=== PATIENT | female | born 1950 | race Caucasian/White ===

== ENCOUNTER → 2017-02-09 | Outpatient (CLI) | payer OTHER ==
--- NOTE | 2017-02-11 13:04 | MM ---
Reason for exam: screening (asymptomatic). Last mammogram was performed 1 year ago. History: Patient is postmenopausal. Family history of premenopausal breast cancer in sister at age 51. Benign stereotactic core biopsy of the left breast, June 02, 2000. Core biopsy of the left breast. Took estrogen for 12 years beginning at age 50. Physical Findings: A clinical breast exam by your physician is recommended on an annual basis and results should be correlated with mammographic findings. MG Screening Mammo w CAD Bilateral CC and MLO view(s) were taken. Prior study comparison: February 09, 2016, bilateral MG screening mammo w CAD. February 05, 2015, bilateral MG screening mammo w CAD. The breast tissue is heterogeneously dense. This may lower the sensitivity of mammography. Previous mammotome biopsy within the left breast. Focal asymmetry upper outer right breast is stable. No significant changes when compared with prior studies. ASSESSMENT: Benign, BI-RAD 2 RECOMMENDATION: Routine screening mammogram of both breasts in 1 year.
== END | disposition home or self-care (01) ==
LOC: RADMAMWWP 07:47
PROVIDERS: ATTEND Obstetrics & Gynecology
DX: Z12.31 Encounter for screening mammogram for malignant neoplasm of breast (principal)

== ENCOUNTER → 2018-02-13 | Outpatient (CLI) | payer MEDICARE ==
--- NOTE | 2018-02-14 11:46 | MM ---
Reason for exam: screening (asymptomatic). Last mammogram was performed 1 year ago. History: Patient is postmenopausal. Family history of premenopausal breast cancer in sister at age 51. Benign stereotactic core biopsy of the left breast, June 02, 2000. Core biopsy of the left breast. Took estrogen for 12 years beginning at age 50. Physical Findings: A clinical breast exam by your physician is recommended on an annual basis and results should be correlated with mammographic findings. MG 3D Screening Mammo W/Cad Bilateral CC and MLO view(s) were taken. Prior study comparison: February 09, 2017, bilateral MG screening mammo w CAD. February 09, 2016, bilateral MG screening mammo w CAD. The breast tissue is heterogeneously dense. This may lower the sensitivity of mammography. Previous mammotome biopsy in the left breast. There is chronic nodularity in the left breast laterally. No significant changes when compared with prior studies. ASSESSMENT: Negative, BI-RAD 1 RECOMMENDATION: Routine screening mammogram of both breasts in 1 year.
== END | disposition home or self-care (01) ==
LOC: RADMAMWWP 07:32
PROVIDERS: ATTEND Obstetrics & Gynecology
DX: Z12.31 Encounter for screening mammogram for malignant neoplasm of breast (principal)
CPT/HCPCS: 77063; 77067

== ENCOUNTER 2018-02-14 07:27 | Day surgery (SDC) | payer MEDICARE, OTHER ==
[2018-02-09 08:28] VITALS: BMI 24.5
[~2018-02-14 07:27] MED LIST: LIDOCAINE 1% 20 ML VIAL (10MG/ML) FOR IV START INTRADERMA PRN
[2018-02-14 07:41] VITALS: RESP 16; TEMP 97.9
[2018-02-14] MEDS: LACTATED RINGERS 1,000 ML IV SCH ×2 (07:54→09:26)
[2018-02-14] MEDS ORDERED: LIDOCAINE 1% INJ 10MG/ML (20 ML MDV) ONE (09:29)
[2018-02-14] MEDS ORDERED: PROPOFOL 10 MG/ML 20 ML VIAL IV ONE (09:29)
--- NOTE | 2018-02-14 10:07 | P.PCN ---
Date of Procedure: 02/14/18 Procedure(s) Performed: Procedure: Total colonoscopy. Preoperative diagnosis: Screening for neoplasia, patient has history of polyps. Postoperative diagnosis: Diverticulosis with no evidence of acute diverticulitis , strictures, polyps or cancer. Preparation: HalfLytely prep. Sedation: Was provided by anesthesia. Brief clinical history: The patient is a 67-year-old female who is scheduled for this evaluation for screening for neoplasia age being her risk factor. In addition, she has history of polyps and her last colonoscopy was around 5 years ago. The patient has no abdominal complaints, bleeding or anemia. Procedure: With the patient on her left lateral decubitus position and after informed consent and adequate sedation, the perianal area was inspected and it did not show any fissures or fistulas. There were no masses felt on digital rectal examination. The Olympus CFQ 160L video colonoscope was then inserted in the rectum in the usual fashion and advanced to the cecum. There were several diverticular orifices seen scattered, both on the left and right side, with no evidence of acute diverticulitis or strictures. The mucosa appeared healthy. No polyps or tumors were seen. I retroflexed the endoscope in the rectum before the endoscope was withdrawn. The patient tolerated the procedure well. Plan: The patient was reassured. Discussed dietary measures. She will follow- up with you as planned and I recommended repeat exam in 5 years.
[2018-02-14 10:40] VITALS: BP 148/81; PULSE 60
== END 2018-02-14 10:48 | disposition home or self-care (01) ==
LOC: ORWHC2ENDO 07:27
DX: Z12.11 Encounter for screening for malignant neoplasm of colon (principal); K57.30 Diverticulosis of large intestine without perforation or abscess without bleeding; Z86.010 Personal history of colon polyps; M19.90 Unspecified osteoarthritis, unspecified site; Z79.82 Long term (current) use of aspirin; Z79.899 Other long term (current) drug therapy
CPT/HCPCS: J2001; J2704; G0105; 45378

== ENCOUNTER → 2019-02-20 | Outpatient (CLI) | payer MEDICARE ==
--- NOTE | 2019-02-20 09:04 | BD ---
EXAMINATION TYPE: Axial Bone Density DATE OF EXAM: 02/20/2019 COMPARISON: 07.19.2011 CLINICAL HISTORY: 68 YR OLD FEMALE...ICD-10 CODE: Z78.0 POST MENOPAUSAL W/O HRT Height: 62.8 Weight: 150 FRAX RISK QUESTIONS: NOTHING TO NOTE HERE RISK FACTORS HISTORY OF: Active: YES Diet low in dairy products/other sources of calcium: NO MILK Postmenopausal woman: YES AT AGE 50 Take estrogen and/or progesterone medications: HRT FROM 48-62 YRS OLD MEDICATIONS: Prednisone or other steroids: THIS WEEK FOR EAR INFECTIONS , BUT NOT ON REGULAR BASIS Additional Medications: CALCIUM SUPPLEMENT Additional History: NOTHING TO NOTE EXAM MEASUREMENTS: Bone mineral densitometry was performed using the Super Vitamin D System. Bone mineral density as measured about the Lumbar spine is: ----- L1-L4(G/cm2): 1.347 T Score Values are as follows: ----- L1: 1.1 ----- L2: 0.9 ----- L3: 1.7 ----- L4: 1.6 ----- L1-L4: 1.4 Bone mineral density has: Increased 5.6% since study of: 07.19.2011 Bone mineral density about the R hip (g/cm2): 1.020 Bone mineral density about the L hip (g/cm2): 0.980 T Score values are as follows: -----R Neck: 0.5 -----L Neck: 0.2 -----R Total: 0.1 -----L Total: -0.2 Bone mineral density has: Decreased -0.3% since study of: 07.19.2011 FRAX%s: THERE IS A 6.6% CHANCE FOR A MAJOR OSTEOPOROTIC FX AND A 0.2% FOR HIP....PROBABILITY FOR FX IN 10 YRS TIME IMPRESSION: Normal (Values between +1 and -1 indicate normal bone mass). Consider repeating this study in 5 year s or sooner if there is some new clinical indication. NOTE: T-SCORE=SD OF THE YOUNG ADULT MEAN.
--- NOTE | 2019-02-21 11:17 | MM ---
Reason for exam: screening (asymptomatic). Last mammogram was performed 1 year ago. History: Patient is postmenopausal. Family history of premenopausal breast cancer in sister at age 51. Benign stereotactic core biopsy of the left breast, June 02, 2000. Core biopsy of the left breast. Took estrogen for 12 years beginning at age 50. Physical Findings: A clinical breast exam by your physician is recommended on an annual basis and results should be correlated with mammographic findings. MG 3D Screening Mammo W/Cad Bilateral CC and MLO view(s) were taken. Prior study comparison: February 13, 2018, bilateral MG 3d screening mammo w/cad. February 09, 2017, bilateral MG screening mammo w CAD. The breast tissue is heterogeneously dense. This may lower the sensitivity of mammography. No suspicious abnormality. Left biopsy marker noted. No significant changes when compared with prior studies. ASSESSMENT: Negative, BI-RAD 1 RECOMMENDATION: Routine screening mammogram of both breasts in 1 year.
== END | disposition home or self-care (01) ==
LOC: RADMAMWWP 07:12
PROVIDERS: ATTEND Obstetrics & Gynecology
DX: Z12.31 Encounter for screening mammogram for malignant neoplasm of breast (principal); Z13.820 Encounter for screening for osteoporosis; Z78.0 Asymptomatic menopausal state
CPT/HCPCS: 77063; 77067; 77080

== ENCOUNTER → 2020-04-04 | Outpatient (CLI) | payer MEDICARE ==
--- NOTE | 2020-04-08 08:23 | MM ---
Reason for exam: screening (asymptomatic). Last mammogram was performed 1 year and 1 month ago. History: Patient is postmenopausal. Family history of premenopausal breast cancer in sister at age 51. Benign stereotactic core biopsy of the left breast, June 02, 2000. Core biopsy of the left breast. Took estrogen for 12 years beginning at age 50. Physical Findings: A clinical breast exam by your physician is recommended on an annual basis and results should be correlated with mammographic findings. MG 3D Screening Mammo W/Cad Bilateral CC and MLO view(s) were taken. Prior study comparison: February 20, 2019, bilateral MG 3d screening mammo w/cad. February 13, 2018, bilateral MG 3d screening mammo w/cad. The breast tissue is heterogeneously dense. This may lower the sensitivity of mammography. Previous mammotome biopsy in the left breast. There is no discrete abnormality. No significant changes when compared with prior studies. ASSESSMENT: Benign, BI-RAD 2 RECOMMENDATION: Routine screening mammogram of both breasts in 1 year.
== END | disposition home or self-care (01) ==
LOC: RADMAMWWP 08:04
PROVIDERS: ATTEND Obstetrics & Gynecology
DX: Z12.31 Encounter for screening mammogram for malignant neoplasm of breast (principal); Z80.3 Family history of malignant neoplasm of breast
CPT/HCPCS: 77063; 77067

== ENCOUNTER → 2020-08-05 | Outpatient (CLI) | payer MEDICARE ==
--- NOTE | 2020-08-05 10:33 | ECHOF ---
Referral Reason:Q23.1 Congenital insufficiency of aortic valve MEASUREMENTS -------- HEIGHT: 160.0 cm WEIGHT: 65.8 kg BP: RVIDd: 2.6 cm (< 3.3) IVSd: 1.1 cm (0.6 - 1.1) LVIDd: 4.6 cm (3.9 - 5.3) LVPWd: 1.2 cm (0.6 - 1.1) IVSs: 1.5 cm LVIDs: 3.2 cm LVPWs: 1.4 cm LAESV Index (A-L): 35.69 ml/m Ao Diam: 2.2 cm (2.0 - 3.7) AV Cusp: 1.6 cm (1.5 - 2.6) LA Diam: 3.5 cm (2.7 - 3.8) MV EXCURSION: 22.473 mm (> 18.000) MV EF SLOPE: 72 mm/s (70 - 150) EPSS: 0.9 cm MV E Ricky: 0.81 m/s MV DecT: 243 ms MV A Ricky: 0.96 m/s MV E/A Ratio: 0.85 AV maxP.32 mmHg AV meanP.38 mmHg RAP: 5.00 mmHg RVSP: 29.93 mmHg FINDINGS -------- This was a technically good study. The left ventricular size is normal. There is borderline concentric left ventricular hypertrophy. Overall left ventricular systolic function is normal with, an EF between 55 - 60 %. Normal LAP Gra de 1 Diastolic Dysfunction. The right ventricle is normal in size. LA is moderately dilated 34-39 ml/m2 The right atrial size is normal. Interatrial and interventricular septum intact. There is mild to moderate aortic stenosis present. Peak/mean gradient across the Aortic Valve is 30. 32mmHg / 18.38mmHg. Functionally bicuspid aortic valve. AOV opens Bicuspid with raphe. The mitral valve is normal. The mitral valve leaflets are mildly thickened. Mild mitral regurgita tion is present. The tricuspid valve appears structurally normal. Mild tricuspid regurgitation present. Right vent ricular systolic pressure is normal at < 35 mmHg. There is no pulmonic regurgitation present. The aortic root size is normal. Normal inferior vena cava with normal inspiratory collapse consistent with estimated right atrial pre ssure of 5 mmHg. There is no pericardial effusion. CONCLUSIONS -------- 1. The left ventricular size is normal. 2. There is borderline concentric left ventricular hypertrophy. 3. Overall left ventricular systolic function is normal with, an EF between 55 - 60 %. 4. Normal LAP Grade 1 Diastolic Dysfunction. 5. LA is moderately dilated 34-39 ml/m2 6. There is moderate aortic stenosis present. 7. Peak/mean gradient across the Aortic Valve is 30.32mmHg / 18.38mmHg. 8. Functionally bicuspid aortic valve. 9. AOV opens Bicuspid. 10. The mitral valve leaflets are mildly thickened. 11. Mild tricuspid regurgitation present. 12. There is no pericardial effusion. CONSTRUCTION PROJECT ASSISTANT: Olga Lidia Ying RDCS
== END | disposition home or self-care (01) ==
LOC: RADECHMAIN 08:06
PROVIDERS: ATTEND Family Medicine
DX: I08.3 Combined rheumatic disorders of mitral, aortic and tricuspid valves (principal)
CPT/HCPCS: 93306

== ENCOUNTER → 2020-09-22 | Outpatient (CLI) | payer MEDICARE ==
--- NOTE | 2020-09-22 15:58 | CT ---
EXAMINATION TYPE: CT angio chest DATE OF EXAM: 09/22/2020 COMPARISON: None HISTORY: 70-year-old female Thoracic aneurysm without rupture TECHNIQUE: Contiguous axial scanning of the chest performed with IV Contrast, patient injected with 1 00 mL of Isovue 370. Delayed images through the kidneys were obtained. Coronal/sagittal reconstructio ns performed. CT DLP: 186.3 mGycm Automated exposure control for dose reduction was used. FINDINGS: Heart normal size without pericardial effusion. Mild aortic valvular calcifications. The aortic root measures 2.6 cm. Descending aorta measures 2.9 cm. Conventional arch vessel branching anatomy. Upper descending thoracic aorta measures 2.6 cm. Mid descending thoracic aorta measures 2.6 cm. Distal descending thoracic aorta measures 2.2 cm. No evidence for aortic dissection. No thoracic lymphadenopathy by CT size criteria. Biapical pleural-parenchymal scarring. 4 mm right upper lobe pulmonary nodule, axial image 17. No con solidation or pleural effusion. Visualized upper abdomen shows a 1.2 cm left adrenal nodule, statistically representing a benign adre nal adenoma. This can be reassessed at a 6 month follow-up. Subcentimeter hypodensity right liver lob e likely a cyst. Bones: Moderate degenerative disc disease lower thoracic spine. Accentuated lower thoracic kyphosis. IMPRESSION: 1. NO EVIDENCE FOR THORACIC AORTIC ANEURYSM. 2. A 4 MM RIGHT UPPER LOBE PULMONARY NODULE. FOLLOW-UP IN 12 MONTHS TO REASSESS. 3. THE 1.2 CM LEFT ADRENAL NODULE SHOULD ALSO BE REASSESSED AT THAT TIME, STATISTICALLY REPRESENTING A BENIGN ADRENAL ADENOMA.
== END | disposition home or self-care (01) ==
LOC: RADCTMAIN 13:20
PROVIDERS: ATTEND Internal Medicine Interventional Cardiology
DX: R91.1 Solitary pulmonary nodule (principal); I71.4 Abdominal aortic aneurysm, without rupture
CPT/HCPCS: 82565; 84520; 71275; 36415; Q9967

== ENCOUNTER → 2021-04-03 | Outpatient (CLI) | payer MEDICARE | END | disposition home or self-care (01) | CPT/HCPCS: 82565; 84520; 74170; 36415; Q9967; 71260; 74150; 74160 ==

== ENCOUNTER → 2021-04-23 | Outpatient (CLI) | payer MEDICARE ==
--- NOTE | 2021-04-24 11:05 | MM ---
Reason for exam: screening (asymptomatic). Last mammogram was performed 1 year and 1 month ago. History: Patient is postmenopausal. Family history of premenopausal breast cancer in sister at age 51. Benign stereotactic core biopsy of the left breast, June 02, 2000. Core biopsy of the left breast. Took estrogen for 12 years beginning at age 50. Physical Findings: A clinical breast exam by your physician is recommended on an annual basis and results should be correlated with mammographic findings. MG 3D Screening Mammo W/Cad Bilateral CC and MLO view(s) were taken. Prior study comparison: April 04, 2020, bilateral MG 3d screening mammo w/cad. February 20, 2019, bilateral MG 3d screening mammo w/cad. There are scattered fibroglandular densities. Left biopsy clip. ASSESSMENT: Benign, BI-RAD 2 RECOMMENDATION: Routine screening mammogram of both breasts in 1 year.
== END | disposition home or self-care (01) ==
LOC: RADMAMWWP 07:47
PROVIDERS: ATTEND Obstetrics & Gynecology
DX: Z12.31 Encounter for screening mammogram for malignant neoplasm of breast (principal)
CPT/HCPCS: 77063; 77067

== ENCOUNTER → 2022-04-26 | Outpatient (CLI) | payer MEDICARE ==
--- NOTE | 2022-04-27 08:29 | MM ---
Reason for Exam: Screening (asymptomatic). Last screening mammogram was performed 12 month(s) ago. Patient History: Menarche at age 18. First Full-Term at age 25. Left ovary removed at age 55. Right ovary removed at age 55. Hysterectomy at age 32. Postmenopausal. Estrogen for 12 years from age 50 until age 62. Core Biopsy on the Left side. 06/02/2000, Benign Stereotactic Core Biopsy on the left side. Sister had breast cancer, age 51. Risk Values: Katharine 5 year model risk: 4.5%. NCI Lifetime model risk: 12.7%. Prior Study Comparison: 02/20/2019 Bilateral Screening Mammogram, [facility]. 04/04/2020 Bilateral Screening Mammogram, [facility]. 04/23/2021 Bilateral Screening Mammogram, [facility]. Tissue Density: The breast tissue is heterogeneously dense. This may lower the sensitivity of mammography. Findings: Analyzed By CAD. There is no suspicious group of microcalcifications or new suspicious mass in either breast. Benign calcification noted. Surgical clip noted on the left. Chronic nodularity outer margin left breast. Overall Assessment: Benign, BI-RAD 2 Management: Screening Mammogram of both breasts in 1 year. A clinical breast exam by your physician is recommended on an annual basis and results should be correlated with mammographic findings. Electronically signed and approved by: Vic Jensen M.D. Radiologis
== END | disposition home or self-care (01) ==
LOC: RADMAMWWP 08:35
PROVIDERS: ATTEND Obstetrics & Gynecology
DX: Z12.31 Encounter for screening mammogram for malignant neoplasm of breast (principal); Z80.3 Family history of malignant neoplasm of breast
CPT/HCPCS: 77063; 77067